=== PATIENT | male | born 1985 | race Caucasian/White ===

== ENCOUNTER 2017-11-19 13:57 | Emergency (ER) | payer BC ==
[2017-11-19] MEDS ORDERED: NA CHLORIDE 0.9% 1,000 ML ONE (14:16)
[2017-11-19 14:47] LABS: Absolute Lymphocytes (CBC) 1.7 K/uL (0.7-4.9); Absolute Monocytes 0.5 K/uL (0.1-1.3); Absolute Neutrophil 6.6 K/uL (1.8-8.0); Basophils % 0.6 % (0-1.3); Eosinophils % 0.5 % (0-4.4); Hematocrit 46.8 % (39.6-49.0); Lymphocytes % 19.2 % (15.3-44.8); MCH 30.8 pg (27.0-35.0); MCV 89.5 fL (80-100); Monocytes % 6.1 % (3.3-12.3); RBC Red Blood Cell Count 5.23 M/uL (4.33-5.43)
[2017-11-19 15:01] LABS: Potassium 3.7 mmol/L (3.5-5.1)
--- NOTE | 2017-11-19 15:25 | RAD REPORT ---
EXAM DESCRIPTION: Heidi Kenny (2 Views)11/19/2017 3:10 pm CLINICAL HISTORY: Shortness of breath and palpitations COMPARISON: None FINDINGS: The lungs appear clear of acute infiltrate. The heart is normal size IMPRESSION: No acute abnormalities displayed
--- NOTE | 2017-11-19 15:46 | ER ---
Nurse's Notes [facility] Name: Ruben Knott Age: 32 yrs Sex: Male : 1985 Arrival Date: 11/19/2017 Time: 14:00 Bed 19 Private MD: Diagnosis: Palpitations;Tachycardia, unspecified Presentation: 11/19 14:05 Presenting complaint: Patient states: This morning he had a "tinge" in his chest that aj1 lasted for approximately 30 minutes then resolved, so he took and shower and then the feeling returned, he started feeling tingling in his hands, SOB and feeling light-headed. Patient states he is feeling better now, but he is still feeling jittery. Denies pain. EMS states that patient appeared cool and diaphoretic upon there arrival. Transition of care: patient was not received from another setting of care. Onset of symptoms was November 19, 2017. Risk Assessment: Do you want to hurt yourself or someone else? Patient reports no desire to harm self or others. Initial Sepsis Screen: Does the patient meet any 2 criteria? HR > 90 bpm. No. Patient's initial sepsis screen is negative. Does the patient have a suspected source of infection? No. Patient's initial sepsis screen is negative. Care prior to arrival: Medication(s) given: ASA, 81 mg, x 4. 14:05 Method Of Arrival: EMS: [facility] aj1 14:05 Acuity: ARTURO 3 aj1 Triage Assessment: 14:08 General: Appears in no apparent distress. uncomfortable, Behavior is cooperative, aj1 anxious. Pain: Denies pain. Historical: - Allergies: 14:07 No Known Allergies; aj1 - Home Meds: 14:07 None [Active]; aj1 - PMHx: 14:07 None; aj1 - PSHx: 14:07 None; aj1 - Immunization history:: Flu vaccine is not up to date. - Social history:: Smoking status: Patient/guardian denies using tobacco. - Ebola Screening: : Patient denies travel to an Ebola-affected area in the 21 days before illness onset. - Family history:: not pertinent. - Hospitalizations: : No recent hospitalization is reported. Screenin:09 Abuse screen: Denies threats or abuse. Denies injuries from another. Nutritional aj1 screening: No deficits noted. Tuberculosis screening: No symptoms or risk factors identified. 16:29 Fall Risk None identified. aj1 Assessment: 14:09 General: Appears in no apparent distress. uncomfortable, Behavior is cooperative, aj1 anxious. Pain: Denies pain. Neuro: Level of Consciousness is awake, alert, obeys commands, Oriented to person, place, time, situation, Speech is normal, Facial symmetry appears normal. Cardiovascular: Reports lightheadedness, palpitations, shortness of breath, Denies chest pain, Heart tones S1 S2 present Patient's skin is warm and dry. Rhythm is regular. Respiratory: Reports shortness of breath Airway is patent Respiratory effort is even, unlabored, Respiratory pattern is regular, symmetrical, Breath sounds are clear bilaterally. GI: No signs and/or symptoms were reported involving the gastrointestinal system. : No signs and/or symptoms were reported regarding the genitourinary system. EENT: No signs and/or symptoms were reported regarding the EENT system. Derm: No signs and/or symptoms reported regarding the dermatologic system. Skin is pink, warm \\T\\ dry. normal. Musculoskeletal: No signs and/or symptoms reported regarding the musculoskeletal system. Circulation, motion, and sensation intact. 15:05 Reassessment: Patient appears in no apparent distress at this time. No changes from aj1 previously documented assessment. Patient and/or family updated on plan of care and expected duration. Pain level reassessed. Patient is alert, oriented x 3, equal unlabored respirations, skin warm/dry/pink. Patient states the he thinks the fluids are making him feel a bit better, but he isn't sure. 16:05 Reassessment: Patient appears in no apparent distress at this time. No changes from aj1 previously documented assessment. Patient and/or family updated on plan of care and expected duration. Pain level reassessed. Patient is alert, oriented x 3, equal unlabored respirations, skin warm/dry/pink. 16:29 Reassessment: Patient appears in no apparent distress at this time. No changes from aj1 previously documented assessment. Patient and/or family updated on plan of care and expected duration. Pain level reassessed. Patient is alert, oriented x 3, equal unlabored respirations, skin warm/dry/pink. Vital Signs: 14:08 BP 156 / 95; Pulse 101; Resp 18; Temp 98.4(O); Pulse Ox 100% on R/A; Weight 79.38 kg aj1 (R); Height 5 ft. 8 in. (172.72 cm) (R); Pain 0/10; 15:06 BP 159 / 87; Pulse 94; Resp 18; Pulse Ox 99% ; aj1 16:32 BP 162 / 75; Pulse 92; Resp 18; Pulse Ox 99% ; aj1 14:08 Body Mass Index 26.61 (79.38 kg, 172.72 cm) aj1 ED Course: 14:00 Patient arrived in ED. em1 14:03 Master Bell MD is Attending Physician. rn 14:04 Suzy Kwan RN is Primary Nurse. aj1 14:07 Triage completed. aj1 14:08 Arm band placed on. aj1 14:09 Patient has correct armband on for positive identification. Bed in low position. Call aj1 light in reach. Side rails up X 1. surveillance system monitor on. Pulse ox on. NIBP on. 14:09 No provider procedures requiring assistance completed. aj1 14:15 Initial lab(s) drawn, by me, sent to lab. Inserted saline lock: 20 gauge in left aj1 antecubital area, using aseptic technique. Blood collected. 15:10 XRAY Chest Pa And Lat (2 Views) In Process Unspecified. EDMS 16:29 IV discontinued, intact, bleeding controlled, No redness/swelling at site. Pressure aj1 dressing applied. Administered Medications: 15:00 Drug: NS 0.9% 1000 ml Route: IV; Rate: 1000 ml; Site: right antecubital; aj1 16:31 Follow up: IV Status: Completed infusion; IV Intake: 1000ml aj1 Intake: 16:31 IV: 1000ml; Total: 1000ml. aj1 Outcome: 15:45 Discharge ordered by . rn 16:31 Discharged to home ambulatory. aj1 16:31 Condition: good 16:31 Discharge instructions given to patient, Instructed on discharge instructions, follow up and referral plans. Demonstrated understanding of instructions, follow-up care. 16:34 Patient left the ED. aj1 Signatures: Dispatcher [employer] EDMS Suzy Kwan RN RN aj1 Master Bell MD MD rn Martinez, Eric em1 Corrections: (The following items were deleted from the chart) 14:08 14:05 Care prior to arrival: None. aj1 aj1
--- NOTE | 2017-11-19 15:46 | EDPHYS ---
Physician Documentation [facility] Name: Ruben Knott Age: 32 yrs Sex: Male : 1985 Arrival Date: 11/19/2017 Time: 14:00 Bed 19 Private MD: ED Physician Master Bell HPI: 11/19 14:53 This 32 yrs old Male presents to ER via EMS with complaints of Palpitations. rn 14:53 The patient presents with a history of heart racing. Context: The symptoms occur at rn rest. Onset: The symptoms/episode began/occurred this morning. Duration: The patient or guardian reports multiple episodes, that are intermittent. Modifying factors: The symptoms are aggravated by nothing. The symptoms are alleviated by nothing. Severity of symptoms: At their worst the symptoms were moderate in the emergency department the symptoms have improved. The patient has experienced similar episodes in the past. Reports episodes every 2 weeks or so, for frequent lately, with palpitations, tingling of hands and feet, intermittent, tend to happen day after drinking, drank last night, also reports anxiety, small "twinge" in chest earlier, but no current chest pain, no famhx of early cardiac illness. . Historical: - Allergies: 14:07 No Known Allergies; aj1 - Home Meds: 14:07 None [Active]; aj1 - PMHx: 14:07 None; aj1 - PSHx: 14:07 None; aj1 - Immunization history:: Flu vaccine is not up to date. - Social history:: Smoking status: Patient/guardian denies using tobacco. - Ebola Screening: : Patient denies travel to an Ebola-affected area in the 21 days before illness onset. - Family history:: not pertinent. - Hospitalizations: : No recent hospitalization is reported. ROS: 14:53 Constitutional: Negative for fever, chills, and weight loss, Eyes: Negative for injury, rn pain, redness, and discharge, Neck: Negative for injury, pain, and swelling, Cardiovascular: Negative for edema Respiratory: Negative for cough, wheezing, and pleuritic chest pain, Abdomen/GI: Negative for abdominal pain, nausea, vomiting, diarrhea, and constipation, MS/Extremity: Negative for injury and deformity, Skin: Negative for injury, rash, and discoloration, Neuro: Negative for headache, weakness, and seizure. Exam: 14:53 Constitutional: This is a well developed, well nourished patient who is awake, alert, rn and in no acute distress. Head/Face: Normocephalic, atraumatic. Eyes: Pupils equal round and reactive to light, extra-ocular motions intact. Lids and lashes normal. Conjunctiva and sclera are non-icteric and not injected. Cornea within normal limits. Periorbital areas with no swelling, redness, or edema. Cardiovascular: regular, tachycardic, no murmur Respiratory: Lungs have equal breath sounds bilaterally, clear to auscultation and percussion. No rales, rhonchi or wheezes noted. No increased work of breathing, no retractions or nasal flaring. Abdomen/GI: Soft, non-tender, with normal bowel sounds. No distension or tympany. No guarding or rebound. No evidence of tenderness throughout. Vital Signs: 14:08 BP 156 / 95; Pulse 101; Resp 18; Temp 98.4(O); Pulse Ox 100% on R/A; Weight 79.38 kg aj1 (R); Height 5 ft. 8 in. (172.72 cm) (R); Pain 0/10; 15:06 BP 159 / 87; Pulse 94; Resp 18; Pulse Ox 99% ; aj1 16:32 BP 162 / 75; Pulse 92; Resp 18; Pulse Ox 99% ; aj1 14:08 Body Mass Index 26.61 (79.38 kg, 172.72 cm) [facility] MDM: 14:03 Patient medically screened. rn 15:41 Data reviewed: vital signs, nurses notes, lab test result(s), EKG, radiologic studies, rn and as a result, I will discharge patient. Counseling: I had a detailed discussion with the patient and/or guardian regarding: the historical points, exam findings, and any diagnostic results supporting the discharge/admit diagnosis, lab results, radiology results, the need for outpatient follow up, to return to the emergency department if symptoms worsen or persist or if there are any questions or concerns that arise at home. Response to treatment: the patient's symptoms have markedly improved after treatment, patient is well hydrated. and as a result, I will discharge patient. Special discussion: I discussed with the patient/guardian in detail that at this point there is no indication for admission to the hospital. It is understood, however, that if the symptoms persist or worsen the patient needs to return immediately for re-evaluation. Based on the history and exam findings, there is no indication for further emergent testing or inpatient evaluation. I discussed with the patient/guardian the need to see the wood products manufacturer for further evaluation of the symptoms. I discussed with the patient/guardian the need to see the primary care provider for further evaluation of the symptoms. ED course: Labs normal, cxr normal, feels better, will dc home with abstinence of ETOH, pcp f/u, and cardiology f/u as needed. . 11/19 14:04 Order name: CBC with Diff; Complete Time: 15:27 rn 11/19 14:04 Order name: Basic Metabolic Panel; Complete Time: 15:27 rn 11/19 14:04 Order name: Troponin (emerg Dept Use Only); Complete Time: 15:27 rn 11/19 14:04 Order name: EKG; Complete Time: 14:05 rn 11/19 14:04 Order name: XRAY Chest Pa And Lat (2 Views); Complete Time: 15:27 rn 11/19 14:04 Order name: IV Start; Complete Time: 15:00 rn 11/19 14:04 Order name: EKG - Nurse/Tech; Complete Time: 14:12 rn Administered Medications: 15:00 Drug: NS 0.9% 1000 ml Route: IV; Rate: 1000 ml; Site: right antecubital; aj1 16:31 Follow up: IV Status: Completed infusion; IV Intake: 1000ml aj1 Disposition: 11/19/17 15:45 Discharged to Home. Impression: Palpitations, Tachycardia, unspecified. - Condition is Stable. - Discharge Instructions: Palpitations. - Medication Reconciliation Form, Thank You Letter, Antibiotic Education, Prescription Opioid Use form. - Follow up: Private Physician; When: As needed; Reason: Recheck today's complaints, Re-evaluation by your physician. - Problem is new. - Symptoms have improved. Signatures: Dispatcher [employer] EDSuzy Brasher RN RN aj1 Master Bell MD MD director internal communications: (The following items were deleted from the chart) 16:34 15:45 11/19/2017 15:45 Discharged to Home. Impression: Palpitations; Tachycardia, aj1 unspecified. Condition is Stable. Forms are Medication Reconciliation Form, Thank You Letter, Antibiotic Education, Prescription Opioid Use. Follow up: Private Physician; When: As needed; Reason: Recheck today's complaints, Re-evaluation by your physician. Problem is new. Symptoms have improved. rn
--- NOTE | 2017-11-20 06:31 | EKG ---
Test Date: 2017-11-19 Test Time: 14:12:11 [employer] Product Consultant: ELIZ MEASUREMENT RESULTS: Intervals: Rate: 94 CT: 152 QRSD: 96 QT: 356 QTc: 445 Sagle: P: 55 CT: 152 QRS: 84 T: 20 INTERPRETIVE STATEMENTS: Normal sinus rhythm with sinus arrhythmia Normal ECG No previous ECG available for comparison Electronically Signed On 11-20-17 06:30:35 CDT by Dread Acevedo
== END 2017-11-19 16:34 | disposition home or self-care (01) ==
LOC: ER 13:57
DX: R00.2 Palpitations (principal); R00.0 Tachycardia, unspecified
CPT/HCPCS: 36415; 71046; 80048; 84484; 85025; 93005; 96360; 96361; 99284; J7030